=== PATIENT | male | born 1995 | race African-American/Black ===

== ENCOUNTER 2024-12-28 07:40 | Emergency (ER) | payer OTHER ==
[2024-12-28 08:10] VITALS: BMI 31.5
[2024-12-28] MEDS ORDERED: ACETAMINOPHEN INJECTION 100 ML ONE (08:34)
[2024-12-28] MEDS: ACETAMINOPHEN 1000 MG/100 ML BAG IVPB ONE ×2 (08:38→10:12)
[2024-12-28 08:58] LABS: ABSOLUTE IMMATURE GRANULOCYTES 0.03 x10^3/uL (0.0-0.031); BASOPHILS # 0.02 x10^3/uL (0.01-0.08); EOSINOPHIL % 0.4 % (0.8-7.0); EOSINOPHILS # 0.04 x10^3/uL (0.04-0.54); HEMATOCRIT 42.9 % (40.1-51.0); HEMOGLOBIN 14.4 g/dL (13.7-17.5); MCHC 33.6 g/dl (32.3-36.5); MEAN CELL VOLUME 71.5 fl (79.0-92.2); MEAN PLT VOLUME 10.2 fl (9.4-12.4); MONOCYTE # 0.55 x10^3/uL (0.30-0.82); PLATELET COUNT 278 x10^3/uL (163-337); RDW 16.2 % (12.0-15.6)
[2024-12-28 08:59] LABS: VENOUS BASE EXCESS 2.6 mmol/L (-2-2); VENOUS O2 SATURATION 61.7 % (70-80); VENOUS PCO2 28.3 mmHg (38-52); VENOUS PH 7.544 (7.310-7.410)
[2024-12-28 09:02] LABS: INR 0.93 (0.83-1.09); PROTHROMBIN TIME (PATIENT) 10.2 SEC (9.7-13.0)
[2024-12-28 09:04] LABS: ACTIVATED PTT 21.7 SECONDS (25.2-36.5)
[2024-12-28 09:17] LABS: CHLORIDE 107 mmol/L (98-107); POTASSIUM 4.2 mmol/L (3.5-5.1); SODIUM 139 mmol/L (136-145)
[2024-12-28 09:20] LABS: ALBUMIN 3.8 g/dl (3.4-5.0); CALCIUM 9.5 mg/dL (8.5-10.1)
[2024-12-28 09:21] LABS: ANION GAP 9 mmol/L (4-13); BLOOD UREA NITROGEN 19.6 mg/dL (7-18); CO2 23 mmol/L (21-32); GLUCOSE,RANDOM 128 mg/dL (74-106); MAGNESIUM 1.5 mg/dL (1.8-2.4)
[2024-12-28 09:24] LABS: CREATININE 1.3 mg/dL (0.55-1.3); SGOT/AST 36 U/L (15-37); SGPT/ALT 29 U/L (13-61)
[2024-12-28 09:25] LABS: BILIRUBIN,TOTAL 0.7 mg/dL (0.2-1)
[2024-12-28 09:26] LABS: ALK PHOS 70 U/L (45-117); TOT PROT 7.6 g/dl (6.4-8.2)
[2024-12-28 09:49] LABS: LACTIC ACID 2.6 mmol/L (0.4-2.0)
[2024-12-28] MEDS: LACTATED RINGERS SOLUTION 1000 ML INFUS.BAG IV ONE (10:11)
[2024-12-28] MEDS ORDERED: CEFAZOLIN 2 GM/D5W 2 GM/50 ML ML IVPB ONE (10:18)
[2024-12-28] MEDS: WATER IVPB ONE (10:50)
[2024-12-28] MEDS: CEFAZOLIN IVPB ONE (10:50)
[2024-12-28] MEDS: DEXTROSE 5% IVPB ONE (10:50)
[2024-12-28 13:14] VITALS: BP 135/87; PULSE 83; RESP 20; TEMP 98
== END 2024-12-28 13:40 | disposition short-term general hospital (02) ==
LOC: JER 07:40
PROC: 3E03329 Introduction of Other Anti-infective into Peripheral Vein, Percutaneous Approach (ICD-10-PCS; principal; 2024-12-28)
PROC: 3E033NZ Introduction of Analgesics, Hypnotics, Sedatives into Peripheral Vein, Percutaneous Approach (ICD-10-PCS; 2024-12-28)
DX: S02.622A Fracture of subcondylar process of left mandible, initial encounter for closed fracture (principal); S02.831A Fracture of medial orbital wall, right side, initial encounter for closed fracture; R42 Dizziness and giddiness; V00.841A Fall from standing electric scooter, initial encounter; Y92.410 Unspecified street and highway as the place of occurrence of the external cause
CPT/HCPCS: 36415; 70450-TC; 70486-TC; 71046-TC-FY; 72125-TC; 73110-TC-RT-FY; 73130-TC-RT-FY; 80053; 80307; 82803; 82962; 83605; 83735; 84484; 85025; 85610; 85730; 86850; 86900; 86901; 93005; 93010; 99285-25; J0131